=== PATIENT | male | born 1950 | race Caucasian/White ===

== ENCOUNTER → 2018-06-08 12:36 | Outpatient (CLI) | payer MEDICARE, SELFPAY ==
--- NOTE | 2018-06-08 | DI.CT.S_ITS ---
PROCEDURE: CT UE RT WO CON INDICATIONS: Unspecified fracture of right navicular [scaphoid] bone TECHNIQUE: Noncontrast 1 mm axial sections acquired through the carpal bones, with coronal and sagittal reformats. COMPARISON: Outside Facility, RG, XR WRIST 4V RIGHT, 06/02/2018, 7:40. FINDINGS: Image quality: Excellent. Bones: Mild chronic appearing degenerative osteoarthritic changes are seen at the radiocarpal joint along the dorsum of the distal radius wears a small subchondral cyst is present and also at the distal radial ulnar joint where several clustered subchondral cysts are present involving the adjacent radius and ulna. At the scapholunate articulation and also the lunate-triquetral bone several small subchondral cysts can be seen. Soft tissues: No soft tissue abnormality is identified that would indicate presence of underlying infection or neoplasm. IMPRESSION: No trauma found. No source of acute onset pain is identified. The degenerative changes discussed above are mild to moderate, and show no evidence of acute inflammatory process or associated erosive arthritis. Dictated by: Mauro Quintana M.D. on 06/08/2018 at 16:20 Approved by: Mauro Quintana M.D. on 06/08/2018 at 16:25
== END ==
PROVIDERS: PCP Family Medicine; Visit Provider Physician Assistant Medical
DX: M19.031 Primary osteoarthritis, right wrist (principal)
CPT/HCPCS: 73200

== ENCOUNTER → 2021-03-21 09:33 | Outpatient (CLI) | payer MEDICARE, SELFPAY ==
[2021-03-21 18:55] LABS: Add Manual Diff / Slide Review NO; Basophils Absolute Auto 0 /uL (0-100); Basophils Percent Auto 0.9 % (0-2); Eosinophils Absolute Auto 100 /uL (0-450); Eosinophils Percent Auto 2.2 % (2-4); Hematocrit 46.7 % (41-53); Hemoglobin 15.5 g/dL (13.5-17.5); Lymphocytes Absolute Auto 1300 /uL (1100-4500); Lymphocytes Percent Auto 33.6 % (25-40); Mean Corpuscular HGB Conc 33.2 % (30-36); Mean Corpuscular Volume 93.4 fL (80-100); Monocytes Absolute Auto 700 /uL (0-900); Neutrophils Absolute Auto 1800 /uL (1500-7000); Neutrophils Percent Auto 46.3 % (50-75); Platelet Count 235 X10^3/uL (150-400); Red Cell Distribution Width 13.9 % (11.6-14.8); White Blood Cell Count 3.8 X10^3/uL (4.5-11.0)
[2021-03-21 19:05] LABS: Hemoglobin A1C% w Est Avg Glu 5.4 % (4.0-6.0)
[2021-03-21 19:08] LABS: Alanine Aminotransferase 20 IU/L (<50); Albumin 4.2 g/dL (3.5-5.0); Albumin Globulin Ratio 1.6 (1.0-2.8); Alkaline Phosphatase 61 U/L (38-126); Aspartate Aminotransferase 32 IU/L (17-59); BUN Creatinine Ratio 35.9 (6-22); Bilirubin Total 0.3 mg/dL (0.2-1.3); Blood Urea Nitrogen 28 mg/dL (9-20); Calcium 9.4 mg/dL (8.4-10.2); Carbon Dioxide 24 mmol/L (22-32); Chloride 105 mmol/L (98-107); Estimated Glomerular Filt Rate > 60.0 mL/min (>60); Globulin 2.7 g/dL (1.7-4.1); Glucose 87 mg/dL (80-110); HEMOLYSIS < 15 (0-50); Potassium 4.4 mmol/L (3.4-5.1); Sodium 139 mmol/L (137-145); Total Protein 6.9 g/dL (6.3-8.2)
[2021-03-21 19:35] LABS: Prostate Specific Antigen Scrn 2.02 ng/mL (0.1-4.0)
[2021-03-27 11:03] LABS: Testosterone % Fr + Wkly bound 5.3 % (9.0-46.0); Testosterone Fr+Wkly bound 27.7 ng/dL (40.0-250.0); Testosterone, Total 523.1 ng/dL (264.0-916.0)
== END ==
PROVIDERS: PCP Family Medicine; Referring Provider Physician Assistant Medical; Visit Provider Physician Assistant Medical
DX: R73.9 Hyperglycemia, unspecified (principal); Z12.5 Encounter for screening for malignant neoplasm of prostate; R34 Anuria and oliguria; R39.11 Hesitancy of micturition
CPT/HCPCS: 80053; 83036; 84403; 85025; G0103

== ENCOUNTER → 2021-12-05 11:28 | Outpatient (CLI) | payer MEDICARE, SELFPAY ==
[2021-12-05 19:27] LABS: Add Manual Diff / Slide Review NO; Basophils Absolute Auto 0 /uL (0-100); Basophils Percent Auto 1.3 % (0-2); Eosinophils Absolute Auto 100 /uL (0-450); Hematocrit 46.8 % (41-53); Hemoglobin 16.1 g/dL (13.5-17.5); Lymphocytes Absolute Auto 1200 /uL (1100-4500); Lymphocytes Percent Auto 30.9 % (25-40); Mean Corpuscular HGB Conc 34.4 % (30-36); Mean Corpuscular Hemoglobin 31.6 PG (26-34); Mean Corpuscular Volume 92.1 fL (80-100); Monocytes Absolute Auto 600 /uL (0-900); Monocytes Percent Auto 15.6 % (3-14); Neutrophils Absolute Auto 1900 /uL (1500-7000); Neutrophils Percent Auto 49.2 % (50-75); Platelet Count 210 X10^3/uL (150-400); Red Blood Cell Count 5.08 X10^6/uL (4.5-5.9); Red Cell Distribution Width 13.9 % (11.6-14.8); White Blood Cell Count 3.8 X10^3/uL (4.5-11.0)
[2021-12-05 19:40] LABS: Hemoglobin A1C% w Est Avg Glu 5.7 % (4.0-6.0)
[2021-12-05 19:43] LABS: Cholesterol 223 mg/dL (140-199); HDL Cholesterol 59 mg/dL (40-60); LDL Cholesterol Calculated 153 mg/dL (<100); Triglycerides 55 mg/dL (35-150)
[2021-12-08 18:07] LABS: Hep C Virus Ab w/Reflex Quant NEGATIVE s/c (NEGATIVE)
== END ==
PROVIDERS: PCP Physician Assistant Medical; Visit Provider Physician Assistant Medical
DX: Z12.11 Encounter for screening for malignant neoplasm of colon (principal); Z13.220 Encounter for screening for lipoid disorders; R73.9 Hyperglycemia, unspecified; Z11.59 Encounter for screening for other viral diseases
CPT/HCPCS: 80061; 83036; 85025; 86803

== ENCOUNTER → 2022-02-10 07:05 | Outpatient (CLI) | payer MEDICARE, SELFPAY ==
[2022-02-10 21:04] LABS: COVID19 - ORCAS (NP or Nasal) Negative (Negative)
== END ==
PROVIDERS: PCP Physician Assistant Medical; Visit Provider Physician Assistant
DX: Z01.812 Encounter for preprocedural laboratory examination (principal); Z20.822 Contact with and (suspected) exposure to COVID-19
CPT/HCPCS: C9803; U0003

== ENCOUNTER 2022-02-12 12:18 | Day surgery (SDC) | payer MEDICARE, SELFPAY ==
[2022-02-12] MEDS: LACTATED RINGERS 1,000 ML 100 ML IV (13:03)
[2022-02-12 13:12] VITALS: BP 123/74; PULSE 86; RESP 18; TEMP 36.8; BMI 23.0
--- NOTE | 2022-02-12 13:41 | PM.HP.1 ---
History of Present Illness History of Present Illness Date Patient Seen: 02/12/22 Time Patient Seen: 13:41 Chief complaint: Colonoscopy Narrative: Josh is a 71-year-old man who has never had a colonoscopy before. He thinks his father may have of colon cancer at age 90. No other first-degree relatives with colon cancer. Patient History Family & Social History Social History: household members other Tobacco & Substance use: Smoking Status Never smoker alcohol intake current alcohol intake frequency 0-2 drinks per day Substance Use Type does not use Meds Home Medications and Allergies Home Medications Medication Instructions Recorded Confirmed Type tamsulosin 0.4 mg capsule (Flomax) 0.4 mg PO BEDTIME #90 caps 04/24/21 02/12/22 Rx Allergies Allergy/AdvReac Type Severity Reaction Status Date / Time No Known Drug Allergies Allergy Verified 02/12/22 13:03 Exam Vital Signs (past 8 hours): - 02/12/22 13:12 Temperature 98.2 F Pulse Rate 86 Respiratory Rate 18 Blood Pressure 123/74 Oxygen Delivery Method Room Air Oxygen Delivery Method Room Air Const General: healthy appearing Assessment & Plan Assessment and plan (1) Colon cancer screening: Status: Acute Plan 71-year-old man here for colon cancer screening. We reviewed the risks and benefits and would like to proceed. Time Spent With Patient Critical Care time: I spent a total of [] minutes of critical care time on this patient's care today; this time is exclusive of procedural time.
[2022-02-12] MEDS: MIDAZOLAM 5 MG/5 ML VIAL IV (13:59)
[2022-02-12] MEDS: fentaNYL 100 MCG/2 ML INJ 125 MCG IV (13:59)
--- NOTE | 2022-02-12 14:13 | PM.OP.COLON ---
Operative Date/Time/Diagnoses Date of procedure: 02/12/22 Time of procedure: 14:13 Pre-op diagnosis: Colon cancer screening Post-op diagnosis: same Procedure & Clinicians Study performed: Colonoscopy Same procedure as scheduled: Yes Surgeon: Juan Dixon Procedure Notes Procedure in detail: Surgeon: Juan Dixon MD Procedure: The patient was brought to the endoscopy suite, placed in left lateral decubitus position. The patient was connected to monitoring devices. A time-out was performed. Sedation was administered. Once the patient was adequately sedated, a digital rectal exam was performed and was normal. The scope was then inserted and advanced to the cecum where the appendiceal orifice was identified and photographed. The scope was then slowly withdrawn over greater than 6 minutes. The mucosa was thoroughly inspected. No polyps were identified. There was pandiverticulosis greatest in the sigmoid. The scope was retroflexed in the rectum. No abnormalities were noted. The scope was straightened and removed. The patient was awakened and brought to recovery. Versed: 5 mg Fentanyl: 125 mcg EBL: 0 Findings: Pandiverticulosis Scope withdrawal time: 9 Sedation minutes: 22 Post-procedure Disposition: PACU
[2022-02-12 14:18] VITALS: BP 128/81; PULSE 73; RESP 16; TEMP 36.4; O2SAT 94
[2022-02-12 14:24] VITALS: BP 128/82; PULSE 74; RESP 16; TEMP 36.4; O2SAT 98
[2022-02-12 14:28] VITALS: BP 120/70; PULSE 77; RESP 16; TEMP 36.3; O2SAT 100
[2022-02-12 14:39] VITALS: BP 122/74; PULSE 76; RESP 18; TEMP 36.3; O2SAT 100
--- NOTE | 2022-02-12 14:47 | SUR.PHASEII ---
Patient ambulated to wheelchair with steady gait. Tolerated PO. Provided written and verbal discharge instructions and pt stated understanding. Discharged by wheelchair to Private vehicle in stable condition
== END 2022-02-12 14:50 | disposition home or self-care (01) ==
PROVIDERS: PCP Physician Assistant Medical; Referring Provider Surgery; Visit Provider Surgery
PROC: 0DJD8ZZ Inspection of Lower Intestinal Tract, Via Natural or Artificial Opening Endoscopic (ICD-10-PCS; CPT 45378; principal; 2022-02-12 13:45)
DX: Z12.11 Encounter for screening for malignant neoplasm of colon (principal); K57.30 Diverticulosis of large intestine without perforation or abscess without bleeding
CPT/HCPCS: G0121; 99152; J2250; J3010

== ENCOUNTER → 2022-03-10 15:03 | Outpatient (CLI) | payer MEDICARE, SELFPAY | PROVIDERS: PCP Physician Assistant Medical; Visit Provider Physician Assistant | DX: R05.9 Cough, unspecified (principal); R10.9 Unspecified abdominal pain; R53.81 Other malaise | CPT/HCPCS: 87086 ==

== ENCOUNTER → 2022-03-12 11:37 | Outpatient (CLI) | payer MEDICARE, SELFPAY ==
[2022-03-12 19:51] LABS: Add Manual Diff / Slide Review NO; Basophils Absolute Auto 100 /uL (0-100); Basophils Percent Auto 1.1 % (0-2); Eosinophils Absolute Auto 100 /uL (0-450); Eosinophils Percent Auto 1.4 % (2-4); Hematocrit 42.6 % (41-53); Lymphocytes Absolute Auto 1200 /uL (1100-4500); Lymphocytes Percent Auto 17.3 % (25-40); Mean Corpuscular HGB Conc 32.9 % (30-36); Mean Corpuscular Hemoglobin 30.6 PG (26-34); Monocytes Absolute Auto 900 /uL (0-900); Monocytes Percent Auto 12.9 % (3-14); Neutrophils Absolute Auto 4600 /uL (1500-7000); Neutrophils Percent Auto 67.3 % (50-75); Platelet Count 487 X10^3/uL (150-400); Red Blood Cell Count 4.58 X10^6/uL (4.5-5.9); White Blood Cell Count 6.9 X10^3/uL (4.5-11.0)
[2022-03-12 19:57] LABS: Alanine Aminotransferase 29 IU/L (<50); Albumin 3.4 g/dL (3.5-5.0); Alkaline Phosphatase 88 U/L (38-126); Aspartate Aminotransferase 25 IU/L (17-59); BUN Creatinine Ratio 18.3 (6-22); Bilirubin Total 0.2 mg/dL (0.2-1.3); Blood Urea Nitrogen 15 mg/dL (9-20); Calcium 9.3 mg/dL (8.4-10.2); Carbon Dioxide 30 mmol/L (22-32); Chloride 101 mmol/L (98-107); Estimated Glomerular Filt Rate > 60 mL/min (>60); Globulin 3.4 g/dL (1.7-4.1); Glucose 90 mg/dL (80-110); HEMOLYSIS < 15 (0-50); Sodium 139 mmol/L (137-145); Total Protein 6.8 g/dL (6.3-8.2)
== END ==
PROVIDERS: PCP Physician Assistant Medical; Visit Provider Physician Assistant
DX: R10.9 Unspecified abdominal pain (principal); R53.81 Other malaise
CPT/HCPCS: 80053; 85025

== ENCOUNTER → 2022-03-19 14:38 | Outpatient (CLI) | payer MEDICARE, SELFPAY ==
--- NOTE | 2022-03-19 14:39 | DI.CT.S_ITS ---
PROCEDURE: CT CHEST W CON INDICATIONS: Suspected right hilar mass on 03/10/22 CXR TECHNIQUE: After the administration of intravenous contrast, 5 mm thick sections acquired from the pulmonary apices to the posterior costophrenic angles. 1 mm axial lung, 5 mm thick coronal and sagittal reformats and 7 mm axial MIP were acquired. For radiation dose reduction, the following was used: automated exposure control, adjustment of mA and/or kV according to patient size. COMPARISON: [facility]), CR, XR CHEST 2V, 02/27/2022, 10:05. [facility]), CR, XR CHEST 2V, 03/10/2022, 14:32. FINDINGS: Image quality: Excellent. Lungs and pleura: There is a spiculated mass within the right middle lobe which measures 7.1 by 5.1 x 2.3 cm. No other pulmonary mass lesions or acute airspace opacities. No pleural effusion or pneumothorax. Mild atelectasis is present in the dependent lungs bilaterally. Mediastinum: Heart size is normal. No pericardial effusion. No mediastinal or hilar adenopathy by size criteria. Thoracic aorta and central pulmonary arteries are normal in size. Esophagus is normal in caliber. No hiatal hernia. Bones and chest wall: No suspicious bony lesions. No vertebral body compression fractures. No axillary or supraclavicular adenopathy by size criteria. Thyroid gland is unremarkable . Abdomen: Visualized upper abdominal solid organs appear normal. Upper abdominal bowel loops are normal in caliber. IMPRESSION: 1. Right middle lobe pulmonary mass. Differential considerations include infection and neoplasm. Short interval follow-up is recommended. Alternatively, if clinically indicated, this lesion is likely amenable to CT-guided percutaneous biopsy. Dictated by: Sahra Mcgrath M.D. on 03/19/2022 at 16:00 Approved by: Sahra Mcgrath M.D. on 03/19/2022 at 16:04
== END ==
PROVIDERS: PCP Physician Assistant Medical; Referring Provider Physician Assistant; Visit Provider Physician Assistant
DX: R91.8 Other nonspecific abnormal finding of lung field (principal); R93.89 Abnormal findings on diagnostic imaging of other specified body structures; R07.9 Chest pain, unspecified; R05.9 Cough, unspecified; R53.81 Other malaise
CPT/HCPCS: 71260; Q9967

== ENCOUNTER → 2023-07-20 09:46 | Outpatient (CLI) | payer MEDICARE, SELFPAY ==
[2023-07-20 19:14] LABS: Add Manual Diff / Slide Review NO; Basophils Absolute Auto 0 /uL (0-100); Basophils Percent Auto 0.6 % (0-2); Eosinophils Absolute Auto 100 /uL (0-450); Eosinophils Percent Auto 2.6 % (2-4); Hematocrit 45.6 % (41-53); Hemoglobin 15.4 g/dL (13.5-17.5); Lymphocytes Absolute Auto 1300 /uL (1100-4500); Lymphocytes Percent Auto 34.6 % (25-40); Mean Corpuscular HGB Conc 33.8 % (30-36); Mean Corpuscular Hemoglobin 30.7 PG (26-34); Mean Corpuscular Volume 90.6 fL (80-100); Monocytes Absolute Auto 600 /uL (0-900); Monocytes Percent Auto 16.7 % (3-14); Neutrophils Absolute Auto 1700 /uL (1500-7000); Neutrophils Percent Auto 45.5 % (50-75); Platelet Count 206 X10^3/uL (150-400); Red Blood Cell Count 5.04 X10^6/uL (4.5-5.9); Red Cell Distribution Width 13.7 % (11.6-14.8); White Blood Cell Count 3.8 X10^3/uL (4.5-11.0)
[2023-07-20 19:37] LABS: Appearance Urine UA CLEAR; Bilirubin Urine UA NEGATIVE (NEGATIVE); Color Urine UA YELLOW; Glucose Urine UA NEGATIVE (Negative); Ketones Urine UA NEGATIVE (NEGATIVE); Leukocyte Esterase Urine UA NEGATIVE (NEGATIVE); Nitrite Urine UA NEGATIVE (Negative); Occult Blood Urine UA NEGATIVE (Negative); Protein Urine UA NEGATIVE (Negative); Specific Gravity Urine UA 1.025 (1.000-1.035); Urobilinogen Urine UA 0.2 E.U./dL (0.2); pH Urine UA 5.5 (4.5-8.0)
[2023-07-20 19:39] LABS: Alanine Aminotransferase 21 IU/L (<50); Albumin 4.3 g/dL (3.5-5.0); Albumin Globulin Ratio 1.4 (1.0-2.8); Alkaline Phosphatase 57 U/L (38-126); Aspartate Aminotransferase 27 IU/L (17-59); BUN Creatinine Ratio 25.5 (6-22); Bilirubin Total 0.8 mg/dL (0.2-1.3); Blood Urea Nitrogen 25 mg/dL (9-20); Calcium 9.7 mg/dL (8.4-10.2); Carbon Dioxide 27 mmol/L (22-32); Chloride 103 mmol/L (98-107); Cholesterol 216 mg/dL (140-199); Estimated Glomerular Filt Rate > 60 mL/min (>60); Globulin 3.1 g/dL (1.7-4.1); Glucose 99 mg/dL (80-110); HDL Cholesterol 43 mg/dL (40-60); HEMOLYSIS < 15 (0-50); LDL Cholesterol Calculated 154 mg/dL (<100); Potassium 4.1 mmol/L (3.4-5.1); Sodium 140 mmol/L (137-145); Total Protein 7.4 g/dL (6.3-8.2); Triglycerides 93 mg/dL (35-150)
[2023-07-20 19:52] LABS: Bacteria Urine None Seen; Calcium Oxalate Crystals Urine Few; Culture Indicated Urine Cult Not Indicated; RBC Urine None Seen (0-5/HPF); Squamous Epithelial Cell Urine None Seen (0-5/HPF); Urine Volume Low Vol <10mL (spun); WBC Urine None Seen (0-5/HPF)
[2023-07-20 20:17] LABS: Prostate Specific Antigen Scrn 3.05 ng/mL (0.1-4.0)
== END ==
PROVIDERS: PCP Physician Assistant Medical; Visit Provider Physician Assistant
DX: Z13.220 Encounter for screening for lipoid disorders (principal); Z13.6 Encounter for screening for cardiovascular disorders; B02.9 Zoster without complications; Z12.5 Encounter for screening for malignant neoplasm of prostate; R73.9 Hyperglycemia, unspecified; R35.1 Nocturia
CPT/HCPCS: 80053; 80061; 81001; 85025; G0103

== ENCOUNTER 2023-10-26 06:09 | Day surgery (SDC) | payer MEDICARE, SELFPAY ==
[2023-10-19 12:39] VITALS: BMI 14.5
[2023-10-26 07:03] VITALS: BP 128/69; PULSE 64; RESP 16; TEMP 36.5; O2SAT 96; BMI 22.4
[2023-10-26] MEDS: LACTATED RINGERS 1,000 ML 42 ML IV ×2 (07:03→07:37)
[2023-10-26] MEDS: ACETAMINOPHEN IV 1,000 MG/100 ML VIAL 400 MG IV (07:10)
--- NOTE | 2023-10-26 07:36 | PM.PREOP ---
Pre-operative Note COVID-19 COVID-19 status: Not tested Interval Note History & Physical reviewed/Exam performed by Physician: Yes Changes to H&P: No
== END 2023-10-26 06:10 | disposition home or self-care (01) ==
PROVIDERS: PCP Physician Assistant Medical; Referring Provider Urology; Visit Provider Urology
DX: N40.1 Benign prostatic hyperplasia with lower urinary tract symptoms (principal); Z53.8 Procedure and treatment not carried out for other reasons
CPT/HCPCS: 0421T; C2596; J0131; J0136

== ENCOUNTER 2023-11-09 10:23 | Day surgery (SDC) | payer MEDICARE, SELFPAY ==
[2023-11-03 12:06] VITALS: BMI 14.5
[2023-11-09] VITALS (13 sets, daily range): BP systolic 115–134; BP diastolic 65–83; PULSE 61–100; RESP 12–18; TEMP 36.2–36.5; O2SAT 93–98; BMI 21.1
--- NOTE | 2023-11-09 | PATH_ITS ---
[facility] Accession Number: [id number] No. of containers..01 Tissue . 01 Material submitted: . prostate - PROSTATE CHIPS . 01 Diagnosis: A. PROSTATE CHIPS, EXCISIONAL BIOPSY: Benign prostatic stroma with benign epithelium. MRV 11/15/2023 1345 Local . 01 Electronically signed: . Jaqueline Workman MD, Pathologist NPI- [id number] . 01 Gross description: . Received in formalin with two identifiers and prostate chips, are multiple nunes rubbery soft tissue fragments admixed with hemorrhagic material aggregating to 3.2 x 2.9 x 0.3 cm and weighing 3 grams. Submitted entirely in cassette A1-A2. ([id number]) /HARI 11/11/2023 0823 Local . 01 Pathologist provided ICD-10: N40.1 . 01 CPT . 560850 Specimen Comment: A courtesy copy of this report has been sent to [phone] Performed at: [address] [facility] [address], [place], [place] [id number] MD Tevin Fermin MD Phone: [phone]
--- NOTE | 2023-11-09 10:52 | SUR.OPER ---
Lithotomy on padded OR bed, head on pillow, arms secured on padded arm boards at <90 degrees abduction. Legs secured in padded yellow fins stirrups.
[2023-11-09] MEDS: LACTATED RINGERS 1,000 ML 21 ML IV (11:01)
--- NOTE | 2023-11-09 11:04 | PM.PREOP ---
Pre-operative Note COVID-19 COVID-19 status: Not tested Interval Note History & Physical reviewed/Exam performed by Physician: Yes Changes to H&P: No
[2023-11-09] MEDS: CEFAZOLIN 2 GM/100 ML PREMIX 100 ML IV (11:15)
--- NOTE | 2023-11-09 12:34 | PM.OP.1 ---
Procedure & Clinicians Procedure: 1. Aquablation resection of prostate 2. Transrectal ultrasound prostate 3. Transurethral resection of prostate with cauterization Same procedure as scheduled: Yes Indications: This 73-year-old male presented with profound symptoms of benign prostatic hyperplasia with lower urinary tract symptoms workup revealed him to be an excellent candidate for Aquablation. And the patient wishes to proceed with this. His prostate was in the 92 g range. His Q max was in the 5 range and I believe his AUA symptom score was 21. Patient did have a small median lobe and or bulging into the bladder. And patient presents this time for Aquablation and procedure as noted above. Surgeon: Puneet Esparza Click Yes if Unassisted: Yes Anesthesia Type: General Operative Notes Findings: Urethral meatus is normal, urethra is normal along its length with normal mucosa. The sphincter as well coapted. The prostatic fossa shows bilobar verging on trilobar obstructive character. The ureteral orifices were in normal position with clear efflux and then the procedure they were unaffected and with clear efflux. At the end of the procedure all obvious prostate chips had been removed. And the patient had a widely patent channel no other abnormalities within the bladder save the severe trabeculation. With the bladder full and the scope removed there was a vigorous flow observed after the Aquablation and procedure was completed. No other abnormalities were worrisome findings were noted. Hemostasis was good and the effluent was blush colored. And as noted all fragments had been removed. Closure Type: not applicable Specimen(s): other (Prostate chips) Applied: catheter (24 Micronesian three-way hematuria catheter 45 cc in the balloon) Estimated Blood Loss (mL): 50 Blood products transfused: none Procedure in detail: Procedure in detail: After informed consent was obtained, the patient was identified and brought to the operating room where he is placed in his supine position on the table and anesthesia was induced and maintained. Sharing an adequate level of anesthesia the patient was transitioned to lithotomy position where he was prepped. Ensuring an adequate level anesthesia, administration of antibiotics and time-out. The ultrasound probe and trust stepper were mounted to the articulating arm which he had been secured to the OR bed. With the patient in the lithotomy position the rectum was filled with 60 cc of ultrasound gel and the ultrasound probe was inserted and aligned and confirmation made that the prostate was centered in line using both the transverse and sagittal views. The patient was then draped in a sterile fashion with this done and the ultrasound aligned in inappropriate position the 24 Micronesian aqua beam handpiece was then inserted through the urethra and into the prostate under direct vision. The level of the sphincter was noted on ultrasound as was the location of the verumontanum. The aqua beam handpiece was then inserted into the bladder where cystoscopy was performed. No significant abnormality was noted. The aqua beam handpiece was then checked for alignment with the ultrasound probe and the handpiece was secured to the handpiece articulating arm. Again confirmation of the aqua beam handpiece and probe being parallel and colinear was confirmed. The confirmation that the aqua beam nozzle was centered and proximal to the bladder neck or median lobe was noted via ultrasound. The cystoscope was then retracted and the verumontanum and external sphincter were visualized. The scope tip was then position proximal to the sphincter. The alignment of the ultrasound probe and aqua beam handpiece was once again confirmed and appropriate compression with the ultrasound was obtained. Alignment of the handpiece water jet nozzle was then performed and confirmed. The Aquablation treatment zone and planning was done under real-time trans ultrasound of the prostate. The outlined the prostate was observed the depth and radial angles of resection were defined in the transverse view in the sagittal view the aqua beam nozzle was identified and position registered with the software the length of resection was confirmed contours were then adjusted to conform to the intended resection margins. Patient had a small median lobe which was included in this planning. The 20% power was used to confirm the position of the urethra and resection margins. With this confirmed the Aquablation treatment was then started following the resection contours that had been noted and was observed and real-time with the adjustments being actively made to the contour. Preservation of the vera zone was performed. A 2nd pass was then made adjusting the contours. It was obvious there was a very nice channel each of the resection times for the 1st pass and 2nd pass was 3 minutes 30 seconds. Once the Aquablation resection was done the Aquablation handpiece was removed under direct vision after advancing the cystoscope to the tip of the device and it was looked out under direct vision the continuous-flow resectoscope was then inserted and Shannaik evacuator used to evacuate clot from the prostatic fossa and bladder. The resecting element was then inserted and that the bladder neck from approximately the 2 to 10 30 11 o'clock position the bladder neck was resected. There was a flap from the median lobe and under direct vision and ultrasound guidance this was resected. Points of bleeding were controlled with the electrocautery. Anteriorly at the bladder neck there were some oozers which were controlled with the electrocautery. At the level of just proximal to the verumontanum there was a small nodule of tissue which was resected. Anteriorly at the bladder neck there was some venous oozing which was controlled with electrocautery. At this point the efflux appeared good Shanna evacuator was used to evacuate the prostate chips and any remaining clots. The ureteral orifices were observed and found to be intact and unscathed with clear efflux. With this done the scope was removed a 24 Micronesian hematuria catheter was passed through the urethra prostate end of the bladder was visualized going into the bladder by ultrasound the balloon was filled with 14 cc of sterile water the catheter was placed to very gentle traction and CBI started. The urine remained light pink to perhaps blush. Patient was then awakened having tolerated the procedure well the catheter placed to gravity drainage and CBI as noted above. Patient was transferred to the postanesthesia care unit having tolerated the procedure well the gentle traction and gravity drainage as well as CBI were continued. The prostate chips were forwarded to pathology for examination. There were no complications Complications: none Post-operative Condition: stable Disposition: PACU Plan for aftercare: Patient will be observed in postanesthesia recovery with CBI and with the color of his urine will likely be discharged to home to follow up on but if things will change he will be brought in his an outpatient for further CBI and or irrigation.
[2023-11-09] MEDS: PHENAZOPYRIDINE 100 MG TABLET 200 MG PO (13:11)
[2023-11-09] MEDS: OXYBUTYNIN 5 MG TABLET PO (13:11)
== END 2023-11-09 15:14 | disposition home or self-care (01) ==
PROVIDERS: PCP Physician Assistant Medical; Referring Provider Urology; Visit Provider Urology
PROC: 0VT08ZZ Resection of Prostate, Via Natural or Artificial Opening Endoscopic (ICD-10-PCS; CPT 0421T; principal; 2023-11-09 11:15)
DX: N40.1 Benign prostatic hyperplasia with lower urinary tract symptoms (principal); N13.8 Other obstructive and reflux uropathy; R33.9 Retention of urine, unspecified
CPT/HCPCS: 0421T; C2596; J0690; J1100; J2250; J2405; J2704; J3010; J3490

== ENCOUNTER → 2023-11-11 16:07 | Outpatient (CLI) | payer MEDICARE, SELFPAY | PROVIDERS: PCP Physician Assistant Medical; Visit Provider Urology | DX: N40.1 Benign prostatic hyperplasia with lower urinary tract symptoms (principal); N13.8 Other obstructive and reflux uropathy; R39.9 Unspecified symptoms and signs involving the genitourinary system | CPT/HCPCS: 51798; 81002; 87086 ==

== ENCOUNTER → 2024-01-04 15:40 | Outpatient (CLI) | payer MEDICARE, SELFPAY | PROVIDERS: PCP Physician Assistant Medical; Visit Provider Urology | DX: N40.1 Benign prostatic hyperplasia with lower urinary tract symptoms (principal); N13.8 Other obstructive and reflux uropathy | CPT/HCPCS: 87086 ==